=== PATIENT | female | born 1960 | race American Indian/Alaskan Native ===

== ENCOUNTER 2018-01-21 13:26 | Outpatient (CLI) | payer OTHER ==
--- NOTE | 2018-01-22 07:23 | Mammography Report ---
Bilateral mammogram: No previous available. CAD study utilized. Findings: Predominantly adipose tissue bilaterally. Focal asymmetry measuring 4 mm in diameter in the posterior right breast. Benign axillary nodes. No microcalcification. Impression: Focal asymmetry inner posterior right breast. Recommend spot mag and if necessary sonographic examination. BI-RADS CATEGORY: 0 = Needs additional imaging evaluation ACR BI-RADS MAMMOGRAPHIC CODES: 0 = Needs additional imaging evaluation; 1 = Negative; 2 = Benign; 3 = Probably benign; 4 = Suspicious; 5 = Malignant; 6 = Known biopsy-proven malignancy COMMENT: 1. Dense breast tissue, i.e., adenosis, fibrocystic changes, etc., may obscure an underlying neoplasm. 2. Approximately 10% of cancers are not detected with mammography. 3. A negative mammography report should not delay biopsy if a clinically suspicious mass is present. COMMENT: Patient follow-up letters are generated in [employer]..
== END 2018-01-21 13:27 | disposition home or self-care (01) ==
LOC: MAMMO 13:26
PROVIDERS: ATTEND Advanced Practice Midwife
DX: Z12.31 Encounter for screening mammogram for malignant neoplasm of breast (principal)
CPT/HCPCS: 77067

== ENCOUNTER 2018-03-26 15:07 | Outpatient (CLI) | payer OTHER ==
--- NOTE | 2018-03-26 15:39 | Mammography Report ---
RIGHT DIGITAL DIAGNOSTIC MAMMOGRAM : 03/26/18 15:07:00 CLINICAL: Recalled for asymmetry. COMPARISON:01/21/18 screening FINDINGS: Lateralmedial and spot compression CC and rolled CC views were performed and are negative. IMPRESSION: Negative Mammogram. BI-RADS CATEGORY: 1 -- Negative RECOMMENDATION: Routine mammographic screening in one year. ACR BI-RADS MAMMOGRAPHIC CODES: 0 = Needs additional imaging evaluation; 1 = Negative; 2 = Benign; 3 = Probably benign; 4 = Suspicious; 5 = Malignant; 6 = Known biopsy-proven malignancy COMMENT: 1. Dense breast tissue, i.e., adenosis, fibrocystic changes, etc., may obscure an underlying neoplasm. 2. Approximately 10% of cancers are not detected with mammography. 3. A negative mammography report should not delay biopsy if a clinically suspicious mass is present. COMMENT: Patient follow-up letters are generated via our [employer] application.
== END 2018-03-26 15:08 | disposition home or self-care (01) ==
LOC: US 15:07
PROVIDERS: ATTEND Advanced Practice Midwife
DX: N64.59 Other signs and symptoms in breast (principal)